=== PATIENT | male | born 1955 | race American Indian/Alaskan Native ===

== ENCOUNTER 2017-07-23 07:01 | Day surgery (SDC) | payer MEDICAID ==
[2017-07-23] MEDS ORDERED: NACL 0.9% 1000 ML 1,000 ML IV SCH (11:00)
[2017-07-23] MEDS ORDERED: VERSED IV NR (11:00)
[2017-07-23] MEDS ORDERED: PEPCID PO NR (11:00)
[2017-07-23] MEDS ORDERED: ANCEF/STERILE WATER 2 GM/20 ML IV NR (11:00)
[2017-07-23 11:01] LABS: Basophils # (Auto) 0.1 K/mm3 (0.0-0.1); Eosinophils % (Auto) 0.6 % (0.0-4.3); Hematocrit 43.7 % (35.5-45.6); Hemoglobin 14.6 gm/dl (11.8-15.2); Lymphocytes # (Auto) 1.3 K/mm3 (1.2-5.4); Lymphocytes % (Auto) 25.9 % (13.4-35.0); Mean Corpuscular HGB Conc 33 % (32-34); Mean Corpuscular Hemoglobin 32 pg (28-32); Mean Corpuscular Volume 96 fl (84-94); Monocytes # (Auto) 0.8 K/mm3 (0.0-0.8); Red Blood Count 4.55 M/mm3 (3.65-5.03); Red Cell Distribution Width 13.5 % (13.2-15.2)
[2017-07-23 11:20] LABS: Alanine Aminotransferase 24 units/L (7-56); Albumin 4.4 g/dL (3.9-5); BUN/Creatinine Ratio 12; Blood Urea Nitrogen 13 mg/dL (9-20); Hemolysis Index 37
[2017-07-23 11:44] LABS: Platelet Count 157 K/mm3 (140-440)
[2017-07-23] MEDS ORDERED: NORCO 5/325 PO PRN (12:19)
[2017-07-23] MEDS ORDERED: ZOFRAN IV PRN (12:19)
--- NOTE | 2017-07-23 12:19 | Anesthesia Day of Surgery ---
Anesthesia Day of Surgery - Day of Surgery Patient Examined: Yes Patient is NPO: Yes Beta Blockers: No Felipe's Test: N/A
--- NOTE | 2017-07-23 12:19 | Anesthesia Consultation ---
Anesthesia Consult and Med Hx Date of service: 07/23/17 - Airway Anesthetic Teeth Evaluation: Good ROM Head & Neck: Adequate Mental/Hyoid Distance: Adequate Mallampati Class: Class II Intubation Access Assessment: Probably Good - Pulmonary Exam CTA: Yes - Cardiac Exam Cardiac Exam: RRR - Pre-Operative Health Status ASA Pre-Surgery Classification: ASA2 Proposed Anesthetic Plan: General - Pulmonary Hx Asthma: Yes - Cardiovascular System Hx Hypertension: No - Central Nervous System Hx Seizures: No CVA: No Hx Psychiatric Problems: No - Endocrine Hx Cirrhosis: No - Other Systems Hx Alcohol Use: Yes (OCCAS) Hx Substance Use: No Hx Cancer: Yes ( prostate)
[2017-07-23] MEDS ORDERED: SUBLIMAZE ONE (13:24)
[2017-07-23] MEDS ORDERED: DIPRIVAN 10 MG/ML IV ONE (13:24)
[2017-07-23] MEDS ORDERED: XYLOCAINE MPF 2% ONE (13:25)
[2017-07-23] MEDS ORDERED: ZEMURON IV ONE (13:26)
[2017-07-23] MEDS ORDERED: NACL 0.9% IR ONE (13:28)
[2017-07-23] MEDS ORDERED: MARCAINE 0.5% INFILTRATI ONE ×2 (13:28→13:59)
[2017-07-23] MEDS ORDERED: ePHEDrine SULFATE ONE (13:58)
[2017-07-23] MEDS ORDERED: NEO SYNEPHRINE/NS Syringe(OR USE) IV ONE ×2 (14:01→14:02)
[2017-07-23] MEDS ORDERED: NACL 0.9% 1000 ML 1,000 ML ONE ×2 (14:12→14:35)
[2017-07-23] MEDS ORDERED: ROBINUL ONE ×2 (14:12→14:13)
[2017-07-23] MEDS ORDERED: NEOSTIGMINE ONE (14:13)
[2017-07-23] MEDS ORDERED: ZOFRAN ONE (14:13)
[2017-07-23] MEDS ORDERED: DECADRON ONE (14:13)
[2017-07-23] MEDS ORDERED: BREVIBLOC IV ONE (14:30)
[2017-07-23] MEDS: MORPHINE IV PRN ×2 (15:10→15:29)
[2017-07-23 17:34] VITALS: BP 140/72
--- NOTE | 2017-07-23 21:00 | Post Anesthesia Evaluation ---
- Post Anesthesia Evaluation Patient Participated: Yes Airway Patent: Yes Stable Respiratory Function: Yes Nausea/Vomiting: No Temp > 96.8F: Yes Pain Manageable: Yes Adequeate Hydration: Yes Anesthesia Complications: No Block Receding Appropriately: Not Applicable Patient on Ventilator: No
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
== END 2017-07-23 17:32 | disposition home or self-care (01) ==
LOC: OR 07:01
PROVIDERS: ATTEND Surgery
DX: K40.91 Unilateral inguinal hernia, without obstruction or gangrene, recurrent (principal); J45.909 Unspecified asthma, uncomplicated; Z85.46 Personal history of malignant neoplasm of prostate
CPT/HCPCS: 36415; 49520; 80053; 85025; 88304; C1726; C1781; J0690; J1100; J2250; J2270; J2370; J2405; J2704; J2710; J3010; J7030

== ENCOUNTER 2017-09-16 21:47 | Emergency (ER) | payer MEDICAID ==
[2017-09-16 23:11] VITALS: BP 155/86
[2017-09-16 23:53] LABS: Hematocrit 42.6 % (35.5-45.6); Hemoglobin 14.3 gm/dl (11.8-15.2); Mean Corpuscular HGB Conc 33 % (32-34); Mean Corpuscular Hemoglobin 33 pg (28-32); Mean Corpuscular Volume 97 fl (84-94); Platelet Count 235 K/mm3 (140-440); Red Blood Count 4.38 M/mm3 (3.65-5.03); Red Cell Distribution Width 13.7 % (13.2-15.2)
[2017-09-16 23:57] LABS: Lymphocytes % (Auto) 18.2 % (13.4-35.0); Monocytes % (Auto) 4.8 % (0.0-7.3)
[2017-09-16 23:58] LABS: Basophils # (Auto) 0.1 K/mm3 (0.0-0.1); Eosinophils # (Auto) 0.1 K/mm3 (0.0-0.4); Eosinophils % (Auto) 1.6 % (0.0-4.3); Monocytes # (Auto) 0.3 K/mm3 (0.0-0.8)
[2017-09-17 00:26] LABS: Alanine Aminotransferase 23 units/L (7-56); Albumin 4.3 g/dL (3.9-5); BUN/Creatinine Ratio 11; Blood Urea Nitrogen 10 mg/dL (9-20); Calcium 8.9 mg/dL (8.4-10.2); Hemolysis Index 79
[2017-09-17 00:49] LABS: Bilirubin,Urine NEG (Negative); Blood,Urine NEG (Negative); Color,Urine Yellow (Yellow); Protein,Urine <15 mg/dL mg/dL (Negative)
== END 2017-09-17 05:24 | disposition left against medical advice (07) ==
LOC: ED 21:47
DX: R07.9 Chest pain, unspecified (principal); Z53.21 Procedure and treatment not carried out due to patient leaving prior to being seen by health care provider
CPT/HCPCS: 36415; 80053; 81001; 85025

== ENCOUNTER 2018-09-11 09:22 | Outpatient (CLI) | payer MEDICAID ==
[2018-09-11 10:50] LABS: Hematocrit 39.9 % (35.5-45.6); Hemoglobin 13.6 gm/dl (11.8-15.2); Mean Corpuscular HGB Conc 34 % (32-34); Mean Corpuscular Volume 97 fl (84-94); Platelet Count 203 K/mm3 (140-440); Red Blood Count 4.11 M/mm3 (3.65-5.03); Red Cell Distribution Width 14.2 % (13.2-15.2)
[2018-09-11 11:03] LABS: Chol/HDL Ratio 2.29 %
== END 2018-09-11 09:23 | disposition home or self-care (01) ==
LOC: LAB 09:22
PROVIDERS: ATTEND Internal Medicine
DX: I10 Essential (primary) hypertension (principal); R94.6 Abnormal results of thyroid function studies; R97.20 Elevated prostate specific antigen [PSA]; N34.2 Other urethritis; Z72.89 Other problems related to lifestyle
CPT/HCPCS: 36415; 80061; 83036; 84443; 85027

== ENCOUNTER 2018-12-25 08:52 | Outpatient (CLI) | payer MEDICAID ==
[2018-12-25 10:58] LABS: Hematocrit 40.7 % (35.5-45.6); Mean Corpuscular HGB Conc 34 % (32-34); Mean Corpuscular Volume 98 fl (84-94); Platelet Count 234 K/mm3 (140-440); Red Blood Count 4.16 M/mm3 (3.65-5.03); Red Cell Distribution Width 14.2 % (13.2-15.2)
== END 2018-12-25 08:53 | disposition home or self-care (01) ==
LOC: LABHHL 08:52 → LAB 08:52
PROVIDERS: ATTEND Internal Medicine
DX: Z11.4 Encounter for screening for human immunodeficiency virus [HIV] (principal); D72.818 Other decreased white blood cell count; J45.909 Unspecified asthma, uncomplicated; Z85.46 Personal history of malignant neoplasm of prostate
CPT/HCPCS: 36415; 85027; 87806

== ENCOUNTER 2019-03-03 07:38 | Emergency (ER) | payer MEDICAID ==
--- NOTE | 2019-03-03 09:59 | Emergency Department Report ---
ED Shortness of Breath HPI - General Chief Complaint: Dyspnea/Respdistress Stated Complaint: FUAD Time Seen by Provider: 03/03/19 09:49 Source: patient Mode of arrival: Ambulatory Limitations: No Limitations - History of Present Illness Initial Comments: Patient is 63 years old male with history of asthma. Patient presented to the ER complaining of shortness of breath and wheezing since yesterday. Patient denied any fever or chills. He also denied any chest pain. Patient stated that he is out of his nebulizer machine. MD Complaint: shortness of breath, cough -: Last night Severity: moderate - Related Data Home Medications Medication Instructions Recorded Confirmed Last Taken ARIPiprazole [Abilify] 2 mg PO DAILY 07/22/17 07/23/17 07/23/17 05:00 Brinzolamide [Azopt] 10 ml OP BID 07/22/17 07/23/17 07/23/17 09:57 Allergies Allergy/AdvReac Type Severity Reaction Status Date / Time No Known Allergies Allergy Verified 07/22/17 16:33 ED Review of Systems ROS: Stated complaint: FUAD Other details as noted in HPI Comment: All other systems reviewed and negative Constitutional: denies: chills, fever Respiratory: cough, shortness of breath, wheezing. denies: SOB with exertion, SOB at rest Cardiovascular: denies: chest pain, palpitations Gastrointestinal: denies: abdominal pain, nausea, vomiting Musculoskeletal: denies: back pain Neurological: denies: weakness ED Past Medical Hx - Past Medical History Previous Medical History?: Yes Hx Hypertension: No Hx Seizures: No Hx Psychiatric Treatment: Yes Hx Asthma: Yes Hx HIV: No Additional medical history: prostate Ca, "radiation therapy everyday" - Surgical History Past Surgical History?: Yes Additional Surgical History: hernia removal 07/2017 - Social History Smoking Status: Never Smoker Substance Use Type: None - Medications Home Medications: Home Medications Medication Instructions Recorded Confirmed Last Taken Type ARIPiprazole [Abilify] 2 mg PO DAILY 07/22/17 07/23/17 07/23/17 05:00 History Brinzolamide [Azopt] 10 ml OP BID 07/22/17 07/23/17 07/23/17 09:57 History ED Physical Exam - General Limitations: No Limitations General appearance: alert, in no apparent distress - Head Head exam: Present: atraumatic, normocephalic, normal inspection - Eye Eye exam: Present: normal appearance, PERRL - ENT ENT exam: Present: normal exam, normal orophraynx, mucous membranes moist - Neck Neck exam: Present: normal inspection, full ROM. Absent: tenderness, meningismus, lymphadenopathy, thyromegaly - Respiratory Respiratory exam: Present: normal lung sounds bilaterally. Absent: respiratory distress, wheezes, rales, rhonchi, accessory muscle use, decreased breath sounds, prolonged expiratory - Cardiovascular Cardiovascular Exam: Present: regular rate, normal rhythm, normal heart sounds - GI/Abdominal GI/Abdominal exam: Present: soft, normal bowel sounds. Absent: distended, tenderness, guarding, rebound, rigid, organomegaly, mass, bruit, pulsatile mass, hernia - Extremities Exam Extremities exam: Present: normal inspection, full ROM, normal capillary refill. Absent: pedal edema, calf tenderness - Back Exam Back exam: Present: normal inspection, full ROM. Absent: CVA tenderness (R), CVA tenderness (L) - Neurological Exam Neurological exam: Present: alert, oriented X3, CN II-XII intact, normal gait, reflexes normal. Absent: motor sensory deficit - Psychiatric Psychiatric exam: Present: normal mood - Skin Skin exam: Present: warm, intact ED Course Vital Signs 03/03/19 03/03/19 03/03/19 07:45 09:30 12:28 Temperature 97.7 F Pulse Rate 72 67 Respiratory 20 18 17 Rate Blood Pressure 120/88 133/84 O2 Sat by Pulse 97 99 Oximetry ED Medical Decision Making - Lab Data Result diagrams: 03/03/19 10:02 03/03/19 10:02 - EKG Data -: EKG Interpreted by [place] EKG shows normal: sinus rhythm Rate: normal - EKG Data Interpretation: no acute changes - Radiology Data Radiology results: report reviewed - Medical Decision Making Patient is 63 years old male with history of asthma. Patient presented to the ER complaining of shortness of breath and wheezing since yesterday. Patient denied any fever or chills. He also denied any chest pain. Patient stated that he is out of his nebulizer machine. Patient EKG did not show any ST elevation or depression. Troponin is negative. BNP is negative. I believe patient's symptoms is most likely related to his asthma exacerbation. Patient will be given prescription for his albuterol and a Medrol Dosepak and advised patient to follow up with his primary care physician and to return to the ER if symptoms are not improved. Critical care attestation.: If time is entered above; I have spent that time in minutes in the direct care of this critically ill patient, excluding procedure time. ED Disposition Clinical Impression: Shortness of breath, Asthma exacerbation Disposition: TO HOME OR SELFCARE Is pt being admited?: No Condition: Stable Instructions: Asthma (ED), Dyspnea (ED) Referrals: KEVIN SPENCER MD [Primary Care Provider] - 3-5 Days
--- NOTE | 2019-03-03 11:10 | XRay Report ---
CHEST 2 VIEWS INDICATION: chest pain. COMPARISON: None FINDINGS: Support devices: None. Heart: Within normal limits. Lungs/pleura: No acute air space or interstitial disease. No pneumothorax. Additional findings: None. IMPRESSION: No acute findings. Signer Name: Hima Lancaster Jr, MD Signed: 03/03/2019 11:06 AM Workstation Name: [id number]
[2019-03-03 12:09] LABS: Basophils # (Auto) 0.1 K/mm3 (0.0-0.1); Basophils % (Auto) 1.3 % (0.0-1.8); Eosinophils # (Auto) 0.2 K/mm3 (0.0-0.4); Eosinophils % (Auto) 5.3 % (0.0-4.3); Hematocrit 42.7 % (35.5-45.6); Hemoglobin 14.8 gm/dl (11.8-15.2); Lymphocytes # (Auto) 0.8 K/mm3 (1.2-5.4); Lymphocytes % (Auto) 20.3 % (13.4-35.0); Mean Corpuscular HGB Conc 35 % (32-34); Mean Corpuscular Volume 99 fl (84-94); Monocytes # (Auto) 0.3 K/mm3 (0.0-0.8); Monocytes % (Auto) 8.3 % (0.0-7.3); Platelet Count 217 K/mm3 (140-440); Red Cell Distribution Width 13.7 % (13.2-15.2)
[2019-03-03 12:31] VITALS: BP 133/84
[2019-03-03 12:31] LABS: Albumin 4.4 g/dL (3.9-5); BUN/Creatinine Ratio 14; Blood Urea Nitrogen 15 mg/dL (9-20); Calcium 9.2 mg/dL (8.4-10.2); Hemolysis Index 92
[2019-03-03 12:34] LABS: Alanine Aminotransferase 20 units/L (7-56)
== END 2019-03-03 13:28 | disposition home or self-care (01) ==
LOC: ED 07:38
DX: J45.901 Unspecified asthma with (acute) exacerbation (principal)
CPT/HCPCS: 36415; 71046; 80053; 83880; 84484; 85025; 93005; 93010; 99284

== ENCOUNTER 2019-04-10 08:09 | Outpatient (CLI) | payer MEDICAID ==
[2019-04-10 11:15] LABS: Basophils % (Auto) 1.1 % (0.0-1.8); Eosinophils # (Auto) 0.1 K/mm3 (0.0-0.4); Eosinophils % (Auto) 1.9 % (0.0-4.3); Hematocrit 41.9 % (35.5-45.6); Hemoglobin 13.6 gm/dl (11.8-15.2); Lymphocytes % (Auto) 25.6 % (13.4-35.0); Mean Corpuscular HGB Conc 33 % (32-34); Mean Corpuscular Volume 99 fl (84-94); Monocytes # (Auto) 0.4 K/mm3 (0.0-0.8); Monocytes % (Auto) 11.8 % (0.0-7.3); Platelet Count 252 K/mm3 (140-440); Red Blood Count 4.23 M/mm3 (3.65-5.03); Red Cell Distribution Width 13.7 % (13.2-15.2)
== END 2019-04-10 08:10 | disposition home or self-care (01) ==
LOC: LAB 08:09
PROVIDERS: ATTEND Internal Medicine
DX: D72.818 Other decreased white blood cell count (principal); J45.909 Unspecified asthma, uncomplicated
CPT/HCPCS: 36415; 82607; 82747; 85025

== ENCOUNTER 2019-09-07 09:03 | Outpatient (CLI) | payer MEDICAID ==
[2019-09-07 09:29] LABS: Basophils % (Auto) 1.3 % (0.0-1.8); Eosinophils # (Auto) 0.1 K/mm3 (0.0-0.4); Eosinophils % (Auto) 2.5 % (0.0-4.3); Hematocrit 41.1 % (35.5-45.6); Hemoglobin 13.9 gm/dl (11.8-15.2); Lymphocytes # (Auto) 0.9 K/mm3 (1.2-5.4); Lymphocytes % (Auto) 32.1 % (13.4-35.0); Mean Corpuscular HGB Conc 34 % (32-34); Mean Corpuscular Volume 96 fl (84-94); Monocytes # (Auto) 0.3 K/mm3 (0.0-0.8); Monocytes % (Auto) 10.3 % (0.0-7.3); Platelet Count 195 K/mm3 (140-440); Red Cell Distribution Width 13.4 % (13.2-15.2)
[2019-09-07 09:45] LABS: Alanine Aminotransferase 15 units/L (7-56); Albumin 4.2 g/dL (3.9-5); BUN/Creatinine Ratio 9; Blood Urea Nitrogen 11 mg/dL (9-20); Calcium 8.8 mg/dL (8.4-10.2); Chol/HDL Ratio 2.39 %; HDL Cholesterol 63 mg/dL (40-59); Hemolysis Index 5; LDL Cholesterol,Direct 80 mg/dL (50-130)
[2019-09-09 11:37] LABS: Vitamin D, 25-OH, D2 <4 ng/mL
== END 2019-09-07 09:04 | disposition home or self-care (01) ==
LOC: LAB 09:03
PROVIDERS: ATTEND Internal Medicine
DX: Z00.00 Encounter for general adult medical examination without abnormal findings (principal); Z13.1 Encounter for screening for diabetes mellitus; Z13.220 Encounter for screening for lipoid disorders; Z13.21 Encounter for screening for nutritional disorder; R94.6 Abnormal results of thyroid function studies; D72.818 Other decreased white blood cell count
CPT/HCPCS: 36415; 80053; 80061; 82306; 82607; 83036; 84443; 85025

== ENCOUNTER 2020-11-15 10:36 | Outpatient (CLI) | payer MEDICAID ==
[2020-11-15 11:04] LABS: Basophils % (Auto) 1.2 % (0.0-1.8); Eosinophils # (Auto) 0.1 K/mm3 (0.0-0.4); Eosinophils % (Auto) 1.6 % (0.0-4.3); Lymphocytes # (Auto) 1.1 K/mm3 (1.2-5.4); Lymphocytes % (Auto) 31.1 % (13.4-35.0); Mean Corpuscular HGB Conc 34 % (32-34); Mean Corpuscular Volume 98 fl (84-94); Monocytes # (Auto) 0.3 K/mm3 (0.0-0.8); Monocytes % (Auto) 9.1 % (0.0-7.3); Platelet Count 238 K/mm3 (140-440); Red Blood Count 3.86 M/mm3 (3.65-5.03); Red Cell Distribution Width 13.8 % (13.2-15.2)
[2020-11-15 11:28] LABS: Alanine Aminotransferase 25 units/L (7-56); BUN/Creatinine Ratio 15; Blood Urea Nitrogen 17 mg/dL (9-20); Calcium 8.7 mg/dL (8.4-10.2); Chol/HDL Ratio 2.43 %; HDL Cholesterol 55 mg/dL (40-59); Hemolysis Index 6; LDL Cholesterol,Direct 78 mg/dL (50-130)
[2020-11-18 14:57] LABS: Vitamin D, 25-OH, D2 <4 ng/mL
== END 2020-11-15 10:37 | disposition home or self-care (01) ==
LOC: LAB 10:36
PROVIDERS: ATTEND Internal Medicine
DX: Z00.00 Encounter for general adult medical examination without abnormal findings (principal); R73.9 Hyperglycemia, unspecified; Z13.220 Encounter for screening for lipoid disorders; R94.6 Abnormal results of thyroid function studies; D72.818 Other decreased white blood cell count; E55.9 Vitamin D deficiency, unspecified
CPT/HCPCS: 36415; 80053; 80061; 82306; 83036; 84443; 85025

== ENCOUNTER 2021-06-01 09:31 | Outpatient (CLI) | payer MEDICARE ==
[2021-06-01 11:06] LABS: Hemoglobin 12.7 gm/dl (11.8-15.2); Red Blood Count 3.99 M/mm3 (3.65-5.03)
[2021-06-01 11:07] LABS: Mean Corpuscular HGB Conc 33 % (32-34); Mean Corpuscular Volume 98 fl (84-94); Platelet Count 224 K/mm3 (140-440)
[2021-06-01 12:05] LABS: Total Cells Counted 100
[2021-06-01 12:09] LABS: Large Platelets Rare; Platelet Estimate Consistent w Auto
== END 2021-06-01 09:32 | disposition home or self-care (01) ==
LOC: LAB 09:31
PROVIDERS: ATTEND Internal Medicine
DX: D72.818 Other decreased white blood cell count (principal); E55.9 Vitamin D deficiency, unspecified
CPT/HCPCS: 36415; 82306; 82607; 82747; 85007; 85025

== ENCOUNTER 2021-12-14 11:45 | Outpatient (CLI) | payer MEDICARE ==
[2021-12-14 12:14] LABS: Basophils % (Auto) 0.9 % (0.0-1.8); Eosinophils # (Auto) 0.1 K/mm3 (0.0-0.4); Hematocrit 42.2 % (35.5-45.6); Lymphocytes # (Auto) 0.9 K/mm3 (1.2-5.4); Lymphocytes % (Auto) 33.6 % (13.4-35.0); Mean Corpuscular HGB Conc 33 % (32-34); Mean Corpuscular Volume 98 fl (84-94); Monocytes # (Auto) 0.3 K/mm3 (0.0-0.8); Monocytes % (Auto) 12.1 % (0.0-7.3); Platelet Count 203 K/mm3 (140-440); Red Blood Count 4.32 M/mm3 (3.65-5.03); Red Cell Distribution Width 13.3 % (13.2-15.2)
[2021-12-14 12:36] LABS: Alanine Aminotransferase 16 units/L (7-56); Albumin 4.7 g/dL (3.9-5); BUN/Creatinine Ratio 15; Blood Urea Nitrogen 16 mg/dL (9-20); Calcium 9.1 mg/dL (8.4-10.2); Chol/HDL Ratio 2.02 %; HDL Cholesterol 79 mg/dL (40-59); Hemolysis Index 3; LDL Cholesterol,Direct 75 mg/dL (50-130)
[2021-12-16 16:47] LABS: Vitamin D, 25-OH, D2 28 ng/mL
== END 2021-12-14 11:46 | disposition home or self-care (01) ==
LOC: LAB 11:45
PROVIDERS: ATTEND Internal Medicine
DX: I10 Essential (primary) hypertension (principal); R73.9 Hyperglycemia, unspecified; R94.6 Abnormal results of thyroid function studies; D72.818 Other decreased white blood cell count; E55.9 Vitamin D deficiency, unspecified; Z00.00 Encounter for general adult medical examination without abnormal findings
CPT/HCPCS: 36415; 80053; 80061; 82306; 83036; 84443; 85025